=== PATIENT | female | born 1955 | race Caucasian/White ===

== ENCOUNTER → 2017-03-06 | Outpatient (CLI) | payer OTHER ==
[~2017-03-06] MED LIST: AMOXICILLIN500 MG PO; ANTIVERT25 MG PO; ASPIRIN81 M1 PO; ATIVAN0.5 MG PO; EC NAPROSYN500 MG PO; HYDROCODONE BIT1 T11 PO; LANTUS100 U/ML SC; LEXAPRO20 MG PO; LIPITOR40 MG PO; LISINOPRIL2.5 MG PO; METFORMIN500 MG PO; MULTI-DAY1 TAB PO; NOVOLIN R100 U/ML SC; OMEPRAZOLE20 MG PO; VICODIN 500 MG-1 TAB PO; VICTOZA6 MG/ML SC; VITAMIN C1000 M2 PO; VITAMIN D1000 IU PO; ZOCOR20 MG PO; [UNRECOGNIZED DRUG - OTHER] PO
== END ==
LOC: CT 12:20
DX: N20.0 Calculus of kidney (principal); I25.10 Atherosclerotic heart disease of native coronary artery without angina pectoris; K76.0 Fatty (change of) liver, not elsewhere classified; K43.9 Ventral hernia without obstruction or gangrene; Z90.710 Acquired absence of both cervix and uterus; Z85.42 Personal history of malignant neoplasm of other parts of uterus

== ENCOUNTER → 2017-05-08 | Outpatient (CLI) | payer OTHER ==
[2017-05-08 16:14] LABS: BASO % 0.4 % (0.0-1.0); EOS # 0.2 10*3/uL (0.0-0.4); EOS % 2.3 % (1.0-4.0); HEMATOCRIT 36.9 % (37.0-47.0); HEMOGLOBIN 11.9 g/dl (12.0-16.0); LYMPH # 2.7 10*3/uL (1.3-4.4); LYMPH % 32.2 % (27.0-41.0); MEAN CELL VOLUME 88.1 fl (81.0-99.0); MEAN CORPUSCULAR HGB 28.4 pg (27.0-31.0); MEAN CORPUSCULAR HGB CONC 32.2 g/dl (33.0-37.0); MEAN PLATELET VOLUME 11.1 fl (9.6-12.3); MONO # 0.5 10*3/uL (0.1-1.0); MONO % 6.1 % (3.0-9.0); NEUT # 4.8 10*3/uL (2.3-7.9); NEUT % 58.8 % (47.0-73.0); PLATELET COUNT AUTOMATED 237 10*3/uL (130-400); RED BLOOD COUNT 4.19 10*6/uL (4.10-5.10); RED CELL DISTRI WIDTH 13.7 % (0-14.5); WHITE BLOOD COUNT 8.2 10*3/uL (4.8-10.8)
== END | disposition home or self-care (01) ==
LOC: LAB 14:44
PROVIDERS: Urology
DX: Z79.01 Long term (current) use of anticoagulants (principal)

== ENCOUNTER → 2017-05-09 | Outpatient (CLI) | payer OTHER ==
[2017-05-09 12:16] LABS: BASO % 0.5 % (0.0-1.0); EOS # 0.2 10*3/uL (0.0-0.4); EOS % 2.7 % (1.0-4.0); HEMOGLOBIN 11.6 g/dl (12.0-16.0); LYMPH # 2.4 10*3/uL (1.3-4.4); LYMPH % 36.1 % (27.0-41.0); MEAN CELL VOLUME 88.2 fl (81.0-99.0); MEAN CORPUSCULAR HGB 28.4 pg (27.0-31.0); MEAN CORPUSCULAR HGB CONC 32.2 g/dl (33.0-37.0); MEAN PLATELET VOLUME 10.5 fl (9.6-12.3); MONO # 0.5 10*3/uL (0.1-1.0); MONO % 7.1 % (3.0-9.0); NEUT # 3.5 10*3/uL (2.3-7.9); NEUT % 53.4 % (47.0-73.0); PLATELET COUNT AUTOMATED 228 10*3/uL (130-400); RED BLOOD COUNT 4.08 10*6/uL (4.10-5.10); RED CELL DISTRI WIDTH 13.5 % (0-14.5); WHITE BLOOD COUNT 6.6 10*3/uL (4.8-10.8)
== END | disposition home or self-care (01) ==
LOC: LAB 11:33
PROVIDERS: Urology
DX: Z79.01 Long term (current) use of anticoagulants (principal)

== ENCOUNTER → 2017-06-18 | Outpatient (CLI) | payer OTHER ==
[2017-06-18 13:27] LABS: BASO % 0.4 % (0.0-1.0); EOS # 0.1 10*3/uL (0.0-0.4); EOS % 1.4 % (1.0-4.0); HEMATOCRIT 33.7 % (37.0-47.0); HEMOGLOBIN 10.4 g/dl (12.0-16.0); LYMPH # 2.5 10*3/uL (1.3-4.4); LYMPH % 29.6 % (27.0-41.0); MEAN CORPUSCULAR HGB 25.3 pg (27.0-31.0); MEAN CORPUSCULAR HGB CONC 30.9 g/dl (33.0-37.0); MEAN PLATELET VOLUME 10.6 fl (9.6-12.3); MONO # 0.6 10*3/uL (0.1-1.0); MONO % 7.3 % (3.0-9.0); NEUT # 5.2 10*3/uL (2.3-7.9); NEUT % 60.8 % (47.0-73.0); PLATELET COUNT AUTOMATED 276 10*3/uL (130-400); RED BLOOD COUNT 4.11 10*6/uL (4.10-5.10); WHITE BLOOD COUNT 8.5 10*3/uL (4.8-10.8)
[2017-06-18 13:47] LABS: ALBUMIN 3.3 gm/dl (3.1-4.5); ALKALINE PHOSPHATASE 62 U/L (45-117); BILIRUBIN, TOTAL 0.2 mg/dl (0.2-1.0); BUN 15 mg/dl (7-24); CARBON DIOXIDE 27 mmol/L (21-32); CHLORIDE 103 mmol/L (98-107); EST GLOM FILT AFRICAN AMERICAN > 60 ml/min; GLUCOSE 178 mg/dL (65-99); POTASSIUM 4.3 mmol/L (3.5-5.1); PROTHROMBIN TIME 10.7 SECONDS (9.0-12.4); SGOT/AST 24 IU/L (3-35); SGPT/ALT 28 U/L (12-78); SODIUM 138 mmol/L (136-145); TOTAL PROTEIN 7.2 gm/dL (6.4-8.2)
== END | disposition home or self-care (01) ==
LOC: LAB 12:45
PROVIDERS: Urology
DX: Z01.818 Encounter for other preprocedural examination (principal); N20.0 Calculus of kidney

== ENCOUNTER → 2018-04-18 | Outpatient (CLI) | payer MEDICARE ==
[2018-04-18 09:28] LABS: BASO % 0.8 % (0.0-1.0); EOS # 0.1 10*3/uL (0.0-0.4); EOS % 2.6 % (1.0-4.0); HEMATOCRIT 39.6 % (37.0-47.0); HEMOGLOBIN 11.7 g/dl (12.0-16.0); LYMPH # 2.4 10*3/uL (1.3-4.4); LYMPH % 45.8 % (27.0-41.0); MEAN CELL VOLUME 79.2 fl (81.0-99.0); MEAN CORPUSCULAR HGB 23.4 pg (27.0-31.0); MEAN CORPUSCULAR HGB CONC 29.5 g/dl (33.0-37.0); MEAN PLATELET VOLUME 10.9 fl (9.6-12.3); MONO # 0.5 10*3/uL (0.1-1.0); MONO % 8.8 % (3.0-9.0); NEUT # 2.2 10*3/uL (2.3-7.9); NEUT % 41.8 % (47.0-73.0); PLATELET COUNT AUTOMATED 228 10*3/uL (130-400); RED CELL DISTRI WIDTH 17.2 % (0-14.5); WHITE BLOOD COUNT 5.3 10*3/uL (4.8-10.8)
[2018-04-18 09:55] LABS: ALBUMIN 3.2 gm/dl (3.1-4.5); ALKALINE PHOSPHATASE 65 U/L (45-117); BUN 21 mg/dl (7-24); CHLORIDE 104 mmol/L (98-107); CHOLESTEROL 200 mg/dL (<200); CREATININE 0.92 mg/dL (0.55-1.02); HDL CHOLESTEROL 32 mg/dl (40-60); LDL CHOLESTEROL 128 mg/dL (9-159); POTASSIUM 3.7 mmol/L (3.5-5.1); SGOT/AST 24 IU/L (3-35); SGPT/ALT 37 U/L (12-78); SODIUM 141 mmol/L (136-145); TOTAL PROTEIN 6.8 gm/dL (6.4-8.2); TRIGLYCERIDES 201 mg/dl (<150); VLDL CHOLESTEROL 40 mg/dL (6-40)
== END | disposition home or self-care (01) ==
LOC: LAB 08:35
PROVIDERS: Family Medicine
DX: E78.5 Hyperlipidemia, unspecified (principal); E11.65 Type 2 diabetes mellitus with hyperglycemia

== ENCOUNTER 2019-04-19 14:04 | Inpatient (IN) | payer MEDICARE ==
[~2019-04-19] VITALS: Ht 160 cm; Wt 131.3 kg
[2019-04-19] VITALS (9 sets, daily range): BP systolic 100–167; BP diastolic 54–103
--- NOTE | ~2019-04-19 | EKG ---
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
--- NOTE | ~2019-04-19 | EKG ---
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
--- NOTE | ~2019-04-19 | EKG ---
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
--- NOTE | ~2019-04-19 | EKG ---
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
[~2019-04-19 14:04] MED LIST changes: +ESCITALOPRAM OX10 MG PO; +IRBESARTAN75 M1 PO; +PRAVASTATIN SOD40 MG PO; +TROSPIUM CHLORI60 M1 PO; +XARELTO20 M1 PO
[2019-04-19 14:38] LABS: BASO % 0.3 % (0.0-1.0); EOS # 0.1 10*3/uL (0.0-0.4); EOS % 0.9 % (1.0-4.0); HEMATOCRIT 38.9 % (37.0-47.0); HEMOGLOBIN 11.8 g/dl (12.0-16.0); LYMPH # 2.6 10*3/uL (1.3-4.4); LYMPH % 33.2 % (27.0-41.0); MEAN CELL VOLUME 83.3 fl (81.0-99.0); MEAN CORPUSCULAR HGB 25.3 pg (27.0-31.0); MEAN CORPUSCULAR HGB CONC 30.3 g/dl (33.0-37.0); MEAN PLATELET VOLUME 10.4 fl (9.6-12.3); MONO # 0.5 10*3/uL (0.1-1.0); MONO % 6.7 % (3.0-9.0); NEUT # 4.6 10*3/uL (2.3-7.9); NEUT % 58.5 % (47.0-73.0); PLATELET COUNT AUTOMATED 239 10*3/uL (130-400); RED BLOOD COUNT 4.67 10*6/uL (4.10-5.10); RED CELL DISTRI WIDTH 16.6 % (0-14.5); WHITE BLOOD COUNT 7.8 10*3/uL (4.8-10.8)
[2019-04-19 14:48] LABS: ACT PARTIAL THROMBO TIME 24.5 SECONDS (20.0-32.1)
--- NOTE | 2019-04-19 14:49 | NUR ---
SLEEPING SUNDLY AT THIS TIME. POX 89%, PLACED ON NC 2LPM. FAMILY AT BEDSIDE.
[2019-04-19 14:58] LABS: ALBUMIN 3.4 gm/dl (3.1-4.5); ALKALINE PHOSPHATASE 57 U/L (45-117); BUN 15 mg/dl (7-24); CHLORIDE 105 mmol/L (98-107); CREATININE 0.96 mg/dL (0.55-1.02); POTASSIUM 3.7 mmol/L (3.5-5.1); SGOT/AST 30 IU/L (3-35); SGPT/ALT 35 U/L (12-78); SODIUM 140 mmol/L (136-145); TOTAL PROTEIN 7.3 gm/dL (6.4-8.2)
[2019-04-19 15:07] LABS: TROPONIN I < 0.015 ng/ml (<0.045)
--- NOTE | 2019-04-19 15:35 | NUR ---
SLEEPING, EASILY AROUSED. FEELING BETER PER PT.
--- NOTE | 2019-04-19 16:08 | NUR ---
SLEEPING DEEPLY, AROUSES EASILY BUT DRIFTS BACK TO SLEEP QUICKLY. WILL CONTINUE TO MONITOR.
--- NOTE | 2019-04-19 17:42 | NUR ---
PT ATTEMPTED TO SIT UPRIGHT IN BED, TOLERATED FOR A BRIEF TIME. COMPLAINS OF ROOM SPINNING AND DRY HEAVING.
--- NOTE | 2019-04-19 18:50 | NUR ---
PT DRY HEAVING WITH EVERY ATTEMPT TO MOVE OR SIT UP.
--- NOTE | 2019-04-19 19:00 | NUR ---
PT RESTING QUIETLY IN BED DURING BEDSIDE SHIFT REPORT. NO S/S OF DISTRESS NOTED.
--- NOTE | 2019-04-19 19:04 | NUR ---
[facility] 63, admitted to , under the services of BETH Fernando DO with a diagnosis of VERTIGO. Chief complaint is N/V, DIZZINESS. Patient arrived via bed from ER. Monitor applied. Initial assessment completed. Vital signs taken and recorded. BETH FERNANDO DO notified of admission to the unit. Orders received. See assessment for past medical history, medications and allergies. Patient and/or family oriented to unit. [facility] visitation policy reviewed. Clothing/patient valuable form completed. MERRITT ORNELAS
--- NOTE | 2019-04-19 21:55 | NUR ---
PT NOTED W/N/V. MEDICATED W/ZOFRAN IVP. PT ENCOURAGED TO LIE STILL. PT AGREEABLE. LIGHTS TURNED OFF AND BLIND CLOSED. WILL CONTINUE TO MONITOR.
--- NOTE | 2019-04-20 03:05 | NUR ---
DR. VALENTIN NOTIFIED OF PT'S REQUEST FOR SLEEP AID.
--- NOTE | 2019-04-20 03:12 | NUR ---
24 HR chart check completed.
--- NOTE | 2019-04-20 03:21 | NUR ---
PT MEDICATED W/RESTORIL TO HELP PROMOTE SLEEP. PT DOES NOT WISH DOOR TO BE CLOSED.
[2019-04-20 08:00] VITALS: BP 118/58
--- NOTE | 2019-04-20 09:00 | NUR ---
Financial Aid in to talk to patient. Patient states lives at home with her son living on the same piece of property. Her is currently in [place] as they have a home there also. They are snow birds but she came home early to be able to see her son and grandchildren. There are 0 steps in the home. Physician: Dr. Yenny Garcia Pharmacy: [facility] health services: none Patient's level of ADLs: INDEPENDENT Patient has working utilities: yes DME: none Follow-up physician's appointment after d/c: will be made by the hospitalist nurse director upon discharge Does patient want to access PORTAL?: no Discharge plan discussed with patient. She lives at home with her son living on the same piece of property. Her is currently in [place] but on his way home. She is independent in her ADLs and ambulation. Discussed home health care services and she denies any home needs at this time. When medically stable she will be discharged to home. MARY VITALE
[2019-04-20 09:14] LABS: BASO % 0.4 % (0.0-1.0); EOS # 0.1 10*3/uL (0.0-0.4); EOS % 0.6 % (1.0-4.0); HEMATOCRIT 35.5 % (37.0-47.0); HEMOGLOBIN 10.7 g/dl (12.0-16.0); LYMPH # 2.7 10*3/uL (1.3-4.4); LYMPH % 32.1 % (27.0-41.0); MEAN CELL VOLUME 84.5 fl (81.0-99.0); MEAN CORPUSCULAR HGB 25.5 pg (27.0-31.0); MEAN CORPUSCULAR HGB CONC 30.1 g/dl (33.0-37.0); MEAN PLATELET VOLUME 10.7 fl (9.6-12.3); MONO # 0.7 10*3/uL (0.1-1.0); MONO % 8.1 % (3.0-9.0); NEUT # 4.9 10*3/uL (2.3-7.9); NEUT % 58.4 % (47.0-73.0); PLATELET COUNT AUTOMATED 215 10*3/uL (130-400); RED CELL DISTRI WIDTH 16.6 % (0-14.5); WHITE BLOOD COUNT 8.4 10*3/uL (4.8-10.8)
[2019-04-20 09:16] LABS: ALBUMIN 2.8 gm/dl (3.1-4.5); ALKALINE PHOSPHATASE 51 U/L (45-117); BUN 13 mg/dl (7-24); CHLORIDE 109 mmol/L (98-107); CHOLESTEROL 174 mg/dL (<200); CREATININE 0.77 mg/dL (0.55-1.02); HDL CHOLESTEROL 40 mg/dl (40-60); LDL CHOLESTEROL 101 mg/dL (9-159); PHOSPHOROUS 3.6 mg/dL (2.5-4.9); POTASSIUM 3.7 mmol/L (3.5-5.1); SGOT/AST 32 IU/L (3-35); SGPT/ALT 33 U/L (12-78); SODIUM 140 mmol/L (136-145); TOTAL PROTEIN 6.4 gm/dL (6.4-8.2); TRIGLYCERIDES 166 mg/dl (<150); VLDL CHOLESTEROL 33 mg/dL (6-40)
--- NOTE | 2019-04-20 09:58 | NUR ---
DR. MACDONALD NOTIFIED OF HOME MEDS HAVE NOT BEEN CONTINUED OF YET. DR. MIRELES TAKE CARE OF IT.
[2019-04-20 10:54] LABS: VITAMIN D, 25-HYDROXY 30.8 ng/mL (30-100)
--- NOTE | 2019-04-20 11:39 | NUR ---
PATIENT STATES THAT SHE IS NOT FEELING NAUSEATED AT THIS TIME, JUST DIZZY. DOES NOT FEEL SHE NEEDS TO ZOFRAN RIGHT NOW.
[2019-04-20 12:00] VITALS: BP 123/77
[2019-04-20 16:00] VITALS: BP 138/57
--- NOTE | 2019-04-20 19:15 | NUR ---
PT IS AWAKE AND SITTING UP IN BED EATING HER SNACK. NO S/S OF DISTRESS NOTED. SHE STATES THAT SHE IS FEELING MUCH BETTER AND HAVING NO NAUSEA OR LIGHT SENSITIVITY AT THIS TIME. BED IS LOW, CALL LIGHT WITHIN REACH. WILL CONTINUE TO MONITOR.
[2019-04-20 20:00] VITALS: BP 124/57
--- NOTE | 2019-04-20 21:54 | NUR ---
24 HR CHART CHECK COMPLETE
--- NOTE | 2019-04-20 23:00 | NUR ---
PT MEDICATED WITH RESTORIL FOR C/O INSOMNIA. WILL CONTINUE TO MONITOR.
[2019-04-21] VITALS: BP 140/62
--- NOTE | 2019-04-21 | NUR ---
PT IS ASLEEP IN BED AT THIS TIME. PRN RESTORIL EFFECTIVE.
[2019-04-21 08:00] VITALS: BP 122/66
--- NOTE | 2019-04-21 09:00 | NUR ---
Product Examiner in to see patient. No new needs or request at this time. She denies any home needs. When medically stable she will be discharged to home.
[2019-04-21 12:00] VITALS: BP 147/73
[2019-04-21] MEDS ORDERED: MECLIZINE HCL25 M2 PO (12:32)
--- NOTE | 2019-04-21 15:04 | NUR ---
Discharge instructions reviewed with patient/family. Patient receptive and verbalizes understanding. Follow-up care arranged. Written instructions given to patient/family. [place] DISCONTINUED. BUSINESS SERVICES VICE PRESIDENT DISCONTINUED. PATIENT TAKEN OFF FLOOR BY WHEELCHAIR VIA FAMILY. TEAGAN HAYS
== END 2019-04-21 15:04 | disposition home or self-care (01) | DRG 88 ==
LOC: ED 14:04 → 4E 18:03 → EDHOLD 18:03 → 4E 18:18
PROVIDERS: Emergency Medicine; Internal Medicine; ADMIT Internal Medicine
DX: S06.0X0A Concussion without loss of consciousness, initial encounter (principal); E43 Unspecified severe protein-calorie malnutrition; Z68.43 Body mass index [BMI] 50.0-59.9, adult; D68.2 Hereditary deficiency of other clotting factors; R42 Dizziness and giddiness; S00.93XA Contusion of unspecified part of head, initial encounter; S46.912A Strain of unspecified muscle, fascia and tendon at shoulder and upper arm level, left arm, initial encounter; E11.65 Type 2 diabetes mellitus with hyperglycemia; I10 Essential (primary) hypertension; F41.9 Anxiety disorder, unspecified; F32.9 Major depressive disorder, single episode, unspecified; M51.26 Other intervertebral disc displacement, lumbar region; K21.9 Gastro-esophageal reflux disease without esophagitis; E66.01 Morbid (severe) obesity due to excess calories; W01.0XXA Fall on same level from slipping, tripping and stumbling without subsequent striking against object, initial encounter; Y93.89 Activity, other specified; Y92.098 Other place in other non-institutional residence as the place of occurrence of the external cause; Y99.8 Other external cause status; Z91.041 Radiographic dye allergy status; Z88.8 Allergy status to other drugs, medicaments and biological substances; Z88.6 Allergy status to analgesic agent; Z90.49 Acquired absence of other specified parts of digestive tract; Z79.4 Long term (current) use of insulin; Z90.710 Acquired absence of both cervix and uterus; Z98.891 History of uterine scar from previous surgery; Z82.3 Family history of stroke; Z86.73 Personal history of transient ischemic attack (TIA), and cerebral infarction without residual deficits; Z85.42 Personal history of malignant neoplasm of other parts of uterus; Z80.1 Family history of malignant neoplasm of trachea, bronchus and lung; Z79.899 Other long term (current) drug therapy

== ENCOUNTER → 2019-06-24 | Outpatient (CLI) | payer OTHER ==
[~2019-06-24] MED LIST changes: +MECLIZINE HCL25 M2 PO
== END | disposition home or self-care (01) ==
LOC: MRI 13:50
DX: M48.061 Spinal stenosis, lumbar region without neurogenic claudication (principal); M51.27 Other intervertebral disc displacement, lumbosacral region; M47.816 Spondylosis without myelopathy or radiculopathy, lumbar region; R20.0 Anesthesia of skin

== ENCOUNTER 2020-04-21 23:11 | Emergency (ER) | payer OTHER ==
[2020-04-22 01:45] LABS: BASO % 0.5 % (0.0-1.0); EOS # 0.1 10*3/uL (0.0-0.4); EOS % 1.4 % (1.0-4.0); HEMATOCRIT 38.4 % (37.0-47.0); LYMPH # 2.5 10*3/uL (1.3-4.4); LYMPH % 43.4 % (27.0-41.0); MEAN CELL VOLUME 78.4 fl (81.0-99.0); MEAN CORPUSCULAR HGB 22.9 pg (27.0-31.0); MEAN CORPUSCULAR HGB CONC 29.2 g/dl (33.0-37.0); MEAN PLATELET VOLUME 11.4 fl (9.6-12.3); MONO # 0.5 10*3/uL (0.1-1.0); MONO % 8.9 % (3.0-9.0); NEUT # 2.6 10*3/uL (2.3-7.9); NEUT % 45.6 % (47.0-73.0); PLATELET COUNT AUTOMATED 201 10*3/uL (130-400); RED CELL DISTRI WIDTH 17.2 % (0-14.5); WHITE BLOOD COUNT 5.6 10*3/uL (4.8-10.8)
[2020-04-22 01:57] LABS: ACT PARTIAL THROMBO TIME 24.8 SECONDS (20.0-32.1)
[2020-04-22 02:01] LABS: ALBUMIN 3.2 gm/dl (3.1-4.5); ALKALINE PHOSPHATASE 67 U/L (45-117); BUN 19 mg/dl (7-24); CHLORIDE 105 mmol/L (98-107); CREATININE 0.99 mg/dL (0.55-1.02); LIPASE 81 U/L (73-393); POTASSIUM 4.3 mmol/L (3.5-5.1); SGOT/AST 57 IU/L (3-35); SGPT/ALT 46 U/L (12-78); SODIUM 137 mmol/L (136-145); TOTAL PROTEIN 7.5 gm/dL (6.4-8.2)
[2020-04-22 02:07] LABS: TROPONIN I < 0.015 ng/ml (<0.045)
== END 2020-04-22 02:44 | disposition left against medical advice (07) ==
LOC: ED 23:11
PROVIDERS: Emergency Medicine Emergency Medical Services
DX: I63.81 Other cerebral infarction due to occlusion or stenosis of small artery (principal); D68.51 Activated protein C resistance; K21.9 Gastro-esophageal reflux disease without esophagitis; E11.9 Type 2 diabetes mellitus without complications; F32.9 Major depressive disorder, single episode, unspecified; Z91.041 Radiographic dye allergy status; Z79.899 Other long term (current) drug therapy; Z79.4 Long term (current) use of insulin

== ENCOUNTER 2021-06-24 20:00 | Emergency (ER) | payer OTHER ==
[~2021-06-24] VITALS: Wt 104.3 kg
[2021-06-24] MEDS ORDERED: PREDNISONE20 M1 PO (22:25)
== END 2021-06-24 22:45 | disposition home or self-care (01) ==
LOC: ED 20:00
DX: B88.8 Other specified infestations (principal); Z91.041 Radiographic dye allergy status; Z88.6 Allergy status to analgesic agent; Z79.899 Other long term (current) drug therapy; Z79.4 Long term (current) use of insulin; Z90.49 Acquired absence of other specified parts of digestive tract; Z90.711 Acquired absence of uterus with remaining cervical stump; Z98.890 Other specified postprocedural states

== ENCOUNTER 2021-07-12 18:46 | Emergency (ER) | payer OTHER ==
[~2021-07-12] VITALS: Ht 160 cm; Wt 104.3 kg
[~2021-07-12 18:46] MED LIST changes: +PREDNISONE20 M1 PO
[2021-07-12] MEDS ORDERED: PREDNISONE20 M1 PO (23:49)
[2021-07-12] MEDS ORDERED: METHOCARBAMOL500 M1 PO (23:49)
== END 2021-07-12 23:58 | disposition home or self-care (01) ==
LOC: ED 18:46
DX: M54.5 Low back pain (principal); M25.551 Pain in right hip; Z91.041 Radiographic dye allergy status; Z88.8 Allergy status to other drugs, medicaments and biological substances; Z79.899 Other long term (current) drug therapy; Z79.4 Long term (current) use of insulin

== ENCOUNTER → 2021-08-13 | Outpatient (CLI) | payer OTHER ==
[~2021-08-13] MED LIST changes: +METHOCARBAMOL500 M1 PO
[2021-08-13 15:32] LABS: HEMATOCRIT 28.7 % (37.0-47.0); MEAN CELL VOLUME 73.8 fl (81.0-99.0); MEAN CORPUSCULAR HGB 20.1 pg (27.0-31.0); MEAN CORPUSCULAR HGB CONC 27.2 g/dl (33.0-37.0); MEAN PLATELET VOLUME 11.1 fl (9.6-12.3); PLATELET COUNT AUTOMATED 184 10*3/uL (130-400); RED BLOOD COUNT 3.89 10*6/uL (4.10-5.10); RED CELL DISTRI WIDTH 19.1 % (0-14.5); WHITE BLOOD COUNT 4.3 10*3/uL (4.8-10.8)
[2021-08-13 16:04] LABS: ATYPICAL LYMPHS 2 % (0-0); OVALOCYTES FEW; PLATELET SUFFICIENCY NORMAL (NORMAL); TOTAL CELLS COUNTED 100 #CELLS
[2021-08-14 07:06] LABS: RHEUMATOID ARTHRITIS FACTOR <10.0 IU/mL (0.0-13.9)
[2021-08-14 09:07] LABS: HEP B CORE AB, IGM Negative (Negative); HEPATITIS B SURFACE AG Negative (Negative); HEPATITIS C VIRUS ANTIBODY <0.1 s/co (0.0-0.9)
[2021-08-14 14:08] LABS: ANTI-RNP ANTIBODIES <0.2 AI (0.0-0.9)
[2021-08-15 00:06] LABS: CCP ANTIBODIES IGG/IGA 3 units (0-19)
[2021-08-15 07:06] LABS: DVVTMIXRFX CHG
[2021-08-16 07:06] LABS: LUPUS REFLEX INTERPRETATION Comment: (.)
[2021-08-20 18:06] LABS: HLA-B27 ANTIGEN Negative (.)
== END | disposition home or self-care (01) ==
LOC: LAB 14:57
PROVIDERS: ATTEND Orthopaedic Surgery
DX: M79.642 Pain in left hand (principal); R53.83 Other fatigue

== ENCOUNTER → 2021-08-30 | Outpatient (CLI) | payer OTHER ==
[2021-08-30 08:17] LABS: HEMATOCRIT 30.8 % (37.0-47.0); MEAN CELL VOLUME 73.3 fl (81.0-99.0); MEAN CORPUSCULAR HGB 19.8 pg (27.0-31.0); MEAN CORPUSCULAR HGB CONC 26.9 g/dl (33.0-37.0); MEAN PLATELET VOLUME 10.3 fl (9.6-12.3); PLATELET COUNT AUTOMATED 194 10*3/uL (130-400); RED CELL DISTRI WIDTH 19.2 % (0-14.5); WHITE BLOOD COUNT 8.6 10*3/uL (4.8-10.8)
[2021-08-30 08:29] LABS: INTERNATIONAL NORM RATIO 1.1 (2.0-3.5)
[2021-08-30 08:30] LABS: ALBUMIN 2.6 gm/dl (3.1-4.5); ALKALINE PHOSPHATASE 67 U/L (45-117); BUN 15 mg/dl (7-24); CHLORIDE 103 mmol/L (98-107); CREATININE 0.85 mg/dL (0.55-1.02); POTASSIUM 4.3 mmol/L (3.5-5.1); SGOT/AST 54 IU/L (3-35); SGPT/ALT 37 U/L (12-78); SODIUM 137 mmol/L (136-145); TOTAL PROTEIN 8.1 gm/dL (6.4-8.2)
[2021-08-30 08:34] LABS: PLATELET SUFFICIENCY NORMAL (NORMAL); TOTAL CELLS COUNTED 100 #CELLS
[2021-08-30 08:35] LABS: MICROCYTOSIS MODERATE; OVALOCYTES FEW; ROULEAUX SLIGHT; TARGET CELLS FEW
[2021-08-30 09:57] LABS: ACT PARTIAL THROMBO TIME 27.6 SECONDS (20.0-32.1)
== END | disposition home or self-care (01) ==
LOC: LAB 07:41
PROVIDERS: Family Medicine; ATTEND Family Medicine
DX: E11.43 Type 2 diabetes mellitus with diabetic autonomic (poly)neuropathy (principal); D61.818 Other pancytopenia; D68.51 Activated protein C resistance

== ENCOUNTER 2022-10-02 12:06 | Emergency (ER) | payer OTHER ==
[~2022-10-02] VITALS: Ht 162.5 cm; Wt 91.2 kg
[~2022-10-02 12:06] MED LIST changes: +CYMBALTA30 MG PO; +GABAPENTIN400 MG PO; +HUMALOG100 UNIT/1 SC
== END 2022-10-02 13:55 | disposition home or self-care (01) ==
LOC: ED 12:06
DX: S09.90XA Unspecified injury of head, initial encounter (principal); Z98.890 Other specified postprocedural states; Z90.710 Acquired absence of both cervix and uterus; Z90.49 Acquired absence of other specified parts of digestive tract; Z79.899 Other long term (current) drug therapy; Z91.041 Radiographic dye allergy status; Z88.8 Allergy status to other drugs, medicaments and biological substances; W18.39XA Other fall on same level, initial encounter; Y93.89 Activity, other specified; Y92.89 Other specified places as the place of occurrence of the external cause; Y99.8 Other external cause status

== ENCOUNTER → 2022-10-18 | Outpatient (CLI) | payer OTHER | END | disposition home or self-care (01) | LOC: CT 10-11 15:00 | PROVIDERS: ATTEND Family Medicine | DX: K80.20 Calculus of gallbladder without cholecystitis without obstruction (principal); N20.0 Calculus of kidney; I25.10 Atherosclerotic heart disease of native coronary artery without angina pectoris; I70.0 Atherosclerosis of aorta; R10.84 Generalized abdominal pain ==

== ENCOUNTER → 2022-11-28 | Day surgery (SDC) | payer OTHER ==
[2022-11-25 16:15] LABS: BASO % 0.2 % (0.0-1.0); EOS % 0.5 % (1.0-4.0); HEMATOCRIT 29.6 % (37.0-47.0); LYMPH # 1.6 10*3/uL (1.3-4.4); MEAN CELL VOLUME 100.7 fl (81.0-99.0); MEAN CORPUSCULAR HGB 30.6 pg (27.0-31.0); MEAN CORPUSCULAR HGB CONC 30.4 g/dl (33.0-37.0); MONO # 0.3 10*3/uL (0.1-1.0); MONO % 7.3 % (3.0-9.0); NEUT # 2.2 10*3/uL (2.3-7.9); NEUT % 52.5 % (47.0-73.0); PLATELET COUNT AUTOMATED 163 10*3/uL (130-400); RED BLOOD COUNT 2.94 10*6/uL (4.10-5.10); RED CELL DISTRI WIDTH 18.9 % (0-14.5); WHITE BLOOD COUNT 4.1 10*3/uL (4.8-10.8)
[2022-11-25 16:29] LABS: BUN 11 mg/dl (9-23); CHLORIDE 94 mmol/L (98-107); POTASSIUM 4.1 mmol/L (3.4-5.1)
[~2022-11-28] VITALS: Ht 160 cm; Wt 104.3 kg
[~2022-11-28] MED LIST changes: +METFORMIN XR500 MG PO
== END | disposition home or self-care (01) ==
LOC: SDC 11-25 14:00
PROVIDERS: ATTEND Surgery
DX: K80.20 Calculus of gallbladder without cholecystitis without obstruction (principal); E11.9 Type 2 diabetes mellitus without complications; F41.9 Anxiety disorder, unspecified; K21.9 Gastro-esophageal reflux disease without esophagitis; E78.00 Pure hypercholesterolemia, unspecified; F32.A Depression, unspecified; Z86.73 Personal history of transient ischemic attack (TIA), and cerebral infarction without residual deficits; Z53.8 Procedure and treatment not carried out for other reasons

== ENCOUNTER → 2022-12-09 | Outpatient (CLI) | payer OTHER | END | disposition home or self-care (01) | LOC: CT 11-29 15:00 | PROVIDERS: ATTEND Family Medicine | DX: S22.31XA Fracture of one rib, right side, initial encounter for closed fracture (principal); K80.20 Calculus of gallbladder without cholecystitis without obstruction; I51.7 Cardiomegaly; I34.89 Other nonrheumatic mitral valve disorders; R91.8 Other nonspecific abnormal finding of lung field; K22.9 Disease of esophagus, unspecified; X58.XXXA Exposure to other specified factors, initial encounter; Y93.89 Activity, other specified; Y92.89 Other specified places as the place of occurrence of the external cause; Y99.8 Other external cause status ==

== ENCOUNTER → 2023-01-16 | Day surgery (SDC) | payer OTHER ==
[2023-01-14 13:29] VITALS: BP 123/57
[2023-01-16] VITALS (8 sets, daily range): BP systolic 113–129; BP diastolic 55–69
[~2023-01-16] VITALS: Ht 160 cm; Wt 89.4 kg
[~2023-01-16] MED LIST changes: +COLACE100 MG PO; +DITROPAN XL10 MG PO; +HYDROCODONE-AC1 EAC2 PO; +LOPERAMIDE HCL2 MG PO; +MELATONIN10 M4 PO; +METFORMIN HCL500 M3 PO; +OMEPRAZOLE40 MG PO; +ONDANSETRON HYDR4 M1 PO; +PERCOCET 5-3251 EACH PO; +TYLENOL W/ CODEINE PO
== END | disposition home or self-care (01) ==
LOC: SDC 11-25 14:00 → EDSTATUS 01-14 13:15 → SDC 00:34
PROVIDERS: ATTEND Surgery
DX: K80.10 Calculus of gallbladder with chronic cholecystitis without obstruction (principal); E11.9 Type 2 diabetes mellitus without complications; K21.9 Gastro-esophageal reflux disease without esophagitis; E78.00 Pure hypercholesterolemia, unspecified; F41.9 Anxiety disorder, unspecified; F32.A Depression, unspecified; I10 Essential (primary) hypertension; E66.9 Obesity, unspecified; Z68.34 Body mass index [BMI] 34.0-34.9, adult; Z86.73 Personal history of transient ischemic attack (TIA), and cerebral infarction without residual deficits; Z79.899 Other long term (current) drug therapy

== ENCOUNTER 2023-01-21 03:28 | Inpatient (IN) | payer OTHER ==
[~2023-01-21] VITALS: Ht 160 cm; Wt 78.1 kg
[2023-01-21] VITALS (57 sets, daily range): BP systolic 81–125; BP diastolic 35–88
[~2023-01-21 03:28] MED LIST changes: -DITROPAN XL10 MG PO; -HYDROCODONE-AC1 EAC2 PO; -LOPERAMIDE HCL2 MG PO; -MELATONIN10 M4 PO; -METFORMIN HCL500 M3 PO; -OMEPRAZOLE40 MG PO; -TYLENOL W/ CODEINE PO
[2023-01-21 04:01] LABS: ABG BASE EXCESS -2.5 mmol/L (-2.0-2.0); ARTERIAL BLOOD GAS PH 7.489 (7.35-7.45)
[2023-01-21 04:12] LABS: BILIRUBIN 2+ (Negative); BLOOD Negative (Negative); CLARITY Clear (Clear); COLOR Dark Yellow (Yellow); GLUCOSE Trace (Negative); KETONE 1+ (Negative); LEUKO ESTERASE Trace (Negative); NITRITE Negative (Negative); PH 5.5 (4.5-8.0); SPECIFIC GRAVITY >= 1.030 (1.001-1.030)
[2023-01-21 04:13] LABS: HEMATOCRIT 24.8 % (37.0-47.0); MEAN CELL VOLUME 108.3 fl (81.0-99.0); MEAN CORPUSCULAR HGB 31.4 pg (27.0-31.0); MEAN PLATELET VOLUME 12.1 fl (9.6-12.3); NUCLEATED RED BLOOD CELL 0.1 10*3/uL (0.0-0.0); NUCLEATED RED BLOOD CELL 0.7 % (0.0-0.0); PLATELET COUNT AUTOMATED 187 10*3/uL (130-400); RED BLOOD COUNT 2.29 10*6/uL (4.10-5.10); RED CELL DISTRI WIDTH 18.7 % (0-14.5)
[2023-01-21 04:17] LABS: MANUAL DIFF REFLEX YES
[2023-01-21 04:28] LABS: BACTERIA 1+; MUCOUS 1+; RBC 0-2 rbc/hpf (0-2)
[2023-01-21 04:33] LABS: ALKALINE PHOSPHATASE 82 U/L (46-116); BUN 19 mg/dl (9-23); CHLORIDE 97 mmol/L (98-107); POTASSIUM 3.7 mmol/L (3.4-5.1); SGPT/ALT 17 U/L (10-49); TOTAL PROTEIN 9.1 gm/dL (6.0-8.0)
[2023-01-21 04:34] LABS: OVALOCYTES FEW; PLATELET SUFFICIENCY NORMAL (NORMAL); POLYCHROMASIA SLIGHT; SPHEROCYTES FEW; TOTAL CELLS COUNTED 100 #CELLS
[2023-01-21 09:53] LABS: ARTERIAL BLOOD GAS PH 7.306 (7.35-7.45); ARTERIAL BLOOD GAS PO2 133.9 (80-90)
[2023-01-21 09:54] LABS: ABG BASE EXCESS -10.5 mmol/L (-2.0-2.0)
[2023-01-21] MEDS ORDERED: HYDROCODONE-AC1 EAC2 PO ×2 (11:47→15:30)
[2023-01-21] MEDS ORDERED: DITROPAN XL10 MG PO ×2 (11:49→15:31)
[2023-01-21] MEDS ORDERED: LOPERAMIDE HCL2 MG PO (11:50)
[2023-01-21] MEDS ORDERED: OMEPRAZOLE40 MG PO (11:52)
[2023-01-21] MEDS ORDERED: METFORMIN XR500 MG PO (11:54)
[2023-01-21] MEDS ORDERED: MELATONIN10 M4 PO (11:56)
[2023-01-21 12:01] LABS: URINE AMPHETAMINES Negative (1000ng/ml); URINE BARBITURATES Negative (200ng/ml); URINE BENZODIAZEPINES Positive (200ng/ml); URINE CANNABINOIDS (THC) Negative (50ng/ml); URINE COCAINE Negative (300ng/ml); URINE METHADONE Negative (300ng/ml); URINE OPIATES Positive (300ng/ml); URINE PHENCYCLIDINE Negative (25ng/ml)
[2023-01-21] MEDS ORDERED: TYLENOL W/ CODEINE PO (15:27)
[2023-01-21] MEDS ORDERED: PRAVASTATIN SOD40 MG PO (15:32)
[2023-01-21] MEDS ORDERED: METFORMIN HCL500 M3 PO (15:33)
[2023-01-21 15:58] LABS: ABG BASE EXCESS -7.3 mmol/L (-2.0-2.0); ARTERIAL BLOOD GAS PH 7.272 (7.35-7.45); ARTERIAL BLOOD GAS PO2 102.3 (80-90)
[2023-01-21 20:27] LABS: HEMATOCRIT 24.4 % (37.0-47.0); MANUAL DIFF REFLEX YES; MEAN CELL VOLUME 105.6 fl (81.0-99.0); MEAN CORPUSCULAR HGB 31.6 pg (27.0-31.0); MEAN CORPUSCULAR HGB CONC 29.9 g/dl (33.0-37.0); MEAN PLATELET VOLUME 11.4 fl (9.6-12.3); NUCLEATED RED BLOOD CELL 0.2 10*3/uL (0.0-0.0); NUCLEATED RED BLOOD CELL 1.2 % (0.0-0.0); PLATELET COUNT AUTOMATED 172 10*3/uL (130-400); RED BLOOD COUNT 2.31 10*6/uL (4.10-5.10); RED CELL DISTRI WIDTH 18.8 % (0-14.5); WHITE BLOOD COUNT 13.6 10*3/uL (4.8-10.8)
[2023-01-21 20:47] LABS: PLATELET SUFFICIENCY NORMAL (NORMAL); POLYCHROMASIA SLIGHT; TOTAL CELLS COUNTED 100 #CELLS
[2023-01-21 20:53] LABS: POTASSIUM 3.7 mmol/L (3.4-5.1); TOTAL PROTEIN 8.5 gm/dL (6.0-8.0)
[2023-01-21 21:06] LABS: INTERNATIONAL NORM RATIO 1.7 (2.0-3.5)
[2023-01-21 21:07] LABS: ACT PARTIAL THROMBO TIME 98.6 SECONDS (20.0-32.1)
[2023-01-22] VITALS (96 sets, daily range): BP systolic 82–127; BP diastolic 36–62
[2023-01-22 05:01] LABS: FREE T4 1.02 ng/dl (0.89-1.76); POTASSIUM 3.9 mmol/L (3.4-5.1); THYROID STIM HORMONE (HS) 0.536 uIU/ml (0.550-4.780); TOTAL PROTEIN 8.2 gm/dL (6.0-8.0)
[2023-01-22 06:29] LABS: ACT PARTIAL THROMBO TIME 67.9 SECONDS (20.0-32.1); INTERNATIONAL NORM RATIO 1.5 (2.0-3.5)
[2023-01-22 07:01] LABS: HEMATOCRIT 23.3 % (37.0-47.0); MEAN CELL VOLUME 103.1 fl (81.0-99.0); MEAN CORPUSCULAR HGB 31.9 pg (27.0-31.0); MEAN CORPUSCULAR HGB CONC 30.9 g/dl (33.0-37.0); MEAN PLATELET VOLUME 11.6 fl (9.6-12.3); NUCLEATED RED BLOOD CELL 0.1 10*3/uL (0.0-0.0); NUCLEATED RED BLOOD CELL 0.9 % (0.0-0.0); PLATELET COUNT AUTOMATED 168 10*3/uL (130-400); RED BLOOD COUNT 2.26 10*6/uL (4.10-5.10); RED CELL DISTRI WIDTH 18.8 % (0-14.5); WHITE BLOOD COUNT 12.9 10*3/uL (4.8-10.8)
[2023-01-22 07:04] LABS: MANUAL DIFF REFLEX YES
[2023-01-22 07:22] LABS: BURR CELLS FEW; PLATELET SUFFICIENCY NORMAL (NORMAL); POLYCHROMASIA SLIGHT; ROULEAUX SLIGHT; SCHISTOCYTES FEW; TOTAL CELLS COUNTED 100 #CELLS; TOXIC GRANULATION SLIGHT; VACUOLATION OF NEUTROPHILS SLIGHT
[2023-01-22 07:23] LABS: DOHLE BODIES FEW
[2023-01-22 07:51] LABS: ARTERIAL BLOOD GAS PH 7.305 (7.35-7.45); ARTERIAL BLOOD GAS PO2 126.1 (80-90)
[2023-01-22 07:52] LABS: ABG BASE EXCESS -9.5 mmol/L (-2.0-2.0)
[2023-01-22 15:51] LABS: HEMATOCRIT 22.4 % (37.0-47.0); MEAN CELL VOLUME 102.8 fl (81.0-99.0); MEAN CORPUSCULAR HGB CONC 32.1 g/dl (33.0-37.0); MEAN PLATELET VOLUME 12.7 fl (9.6-12.3); NUCLEATED RED BLOOD CELL 0.1 10*3/uL (0.0-0.0); NUCLEATED RED BLOOD CELL 1.1 % (0.0-0.0); PLATELET COUNT AUTOMATED 147 10*3/uL (130-400); RED BLOOD COUNT 2.18 10*6/uL (4.10-5.10); RED CELL DISTRI WIDTH 18.9 % (0-14.5); WHITE BLOOD COUNT 11.3 10*3/uL (4.8-10.8)
[2023-01-22 15:54] LABS: MANUAL DIFF REFLEX YES
[2023-01-22 15:56] LABS: ABG BASE EXCESS -8.4 mmol/L (-2.0-2.0); ARTERIAL BLOOD GAS PH 7.223 (7.35-7.45); ARTERIAL BLOOD GAS PO2 126.1 (80-90)
[2023-01-22 16:38] LABS: POTASSIUM 4.4 mmol/L (3.4-5.1)
[2023-01-22 17:08] LABS: BURR CELLS FEW; PLATELET SUFFICIENCY NORMAL (NORMAL); POLYCHROMASIA SLIGHT; TOTAL CELLS COUNTED 100 #CELLS
[2023-01-22 17:09] LABS: ACANTHOCYTES FEW; SPHEROCYTES FEW; TOXIC GRANULATION SLIGHT
[2023-01-23] VITALS (96 sets, daily range): BP systolic 88–126; BP diastolic 43–72
[2023-01-23 05:06] LABS: POTASSIUM 4.3 mmol/L (3.4-5.1)
[2023-01-23 06:13] LABS: HEMATOCRIT 22.9 % (37.0-47.0); MEAN CELL VOLUME 103.6 fl (81.0-99.0); MEAN CORPUSCULAR HGB 31.7 pg (27.0-31.0); MEAN CORPUSCULAR HGB CONC 30.6 g/dl (33.0-37.0); MEAN PLATELET VOLUME 12.1 fl (9.6-12.3); NUCLEATED RED BLOOD CELL 0.1 10*3/uL (0.0-0.0); NUCLEATED RED BLOOD CELL 0.5 % (0.0-0.0); PLATELET COUNT AUTOMATED 139 10*3/uL (130-400); RED BLOOD COUNT 2.21 10*6/uL (4.10-5.10); RED CELL DISTRI WIDTH 19.2 % (0-14.5)
[2023-01-23 06:17] LABS: MANUAL DIFF REFLEX YES
[2023-01-23 06:46] LABS: ATYPICAL LYMPHS 1 % (0-0); TOTAL CELLS COUNTED 100 #CELLS
[2023-01-23 06:47] LABS: BURR CELLS MODERATE; PLATELET SUFFICIENCY NORMAL (NORMAL); POLYCHROMASIA SLIGHT; ROULEAUX SLIGHT; SCHISTOCYTES FEW; TOXIC GRANULATION SLIGHT; VACUOLATION OF NEUTROPHILS SLIGHT
[2023-01-23 08:35] LABS: ARTERIAL BLOOD GAS PH 7.284 (7.35-7.45); ARTERIAL BLOOD GAS PO2 160.9 (80-90)
[2023-01-23 08:36] LABS: ABG BASE EXCESS -8.8 mmol/L (-2.0-2.0)
[2023-01-23 12:28] LABS: ABG BASE EXCESS -9.2 mmol/L (-2.0-2.0); ARTERIAL BLOOD GAS PH 7.302 (7.35-7.45); ARTERIAL BLOOD GAS PO2 160.3 (80-90)
[2023-01-24] VITALS (82 sets, daily range): BP systolic 88–133; BP diastolic 34–75
[2023-01-24 04:22] LABS: HEMATOCRIT 23.2 % (37.0-47.0); MEAN CELL VOLUME 102.7 fl (81.0-99.0); MEAN CORPUSCULAR HGB 31.9 pg (27.0-31.0); MEAN PLATELET VOLUME 12.6 fl (9.6-12.3); NUCLEATED RED BLOOD CELL 0.1 10*3/uL (0.0-0.0); NUCLEATED RED BLOOD CELL 1.7 % (0.0-0.0); PLATELET COUNT AUTOMATED 116 10*3/uL (130-400); RED BLOOD COUNT 2.26 10*6/uL (4.10-5.10); RED CELL DISTRI WIDTH 19.5 % (0-14.5); WHITE BLOOD COUNT 6.6 10*3/uL (4.8-10.8)
[2023-01-24 04:26] LABS: MANUAL DIFF REFLEX YES
[2023-01-24 04:37] LABS: ALKALINE PHOSPHATASE 72 U/L (46-116); BUN 58 mg/dl (9-23); CHLORIDE 95 mmol/L (98-107); CHOLESTEROL 72 mg/dL (<200); LDL CHOLESTEROL 22 mg/dL (9-159); POTASSIUM 4.7 mmol/L (3.4-5.1); SGPT/ALT 47 U/L (10-49); TOTAL PROTEIN 7.7 gm/dL (6.0-8.0); TRIGLYCERIDES 226 mg/dl (<150)
[2023-01-24 04:58] LABS: PLATELET SUFFICIENCY LOW (NORMAL); TOTAL CELLS COUNTED 100 #CELLS
[2023-01-24 07:30] LABS: ABG BASE EXCESS -10.3 mmol/L (-2.0-2.0); ARTERIAL BLOOD GAS PH 7.3 (7.35-7.45); ARTERIAL BLOOD GAS PO2 135.4 (80-90)
== END 2023-01-24 21:10 | disposition short-term general hospital (02) | DRG 871 ==
LOC: ED 03:28 → ICCU 08:22 → EDHOLD 08:22 → ICCU 14:14
PROVIDERS: Emergency Medicine; Internal Medicine; Internal Medicine Cardiovascular Disease; ADMIT Internal Medicine; ATTEND Internal Medicine
PROC: 30233N1 Transfusion of Nonautologous Red Blood Cells into Peripheral Vein, Percutaneous Approach (ICD-10-PCS; principal; 2023-01-21)
PROC: 5A1945Z Respiratory Ventilation, 24-96 Consecutive Hours (ICD-10-PCS; 2023-01-21)
PROC: 0BH17EZ Insertion of Endotracheal Airway into Trachea, Via Natural or Artificial Opening (ICD-10-PCS; 2023-01-21)
DX: A41.9 Sepsis, unspecified organism (principal); E43 Unspecified severe protein-calorie malnutrition; G93.41 Metabolic encephalopathy; J96.01 Acute respiratory failure with hypoxia; I21.4 Non-ST elevation (NSTEMI) myocardial infarction; J69.0 Pneumonitis due to inhalation of food and vomit; R65.21 Severe sepsis with septic shock; E87.1 Hypo-osmolality and hyponatremia; E87.20 Acidosis, unspecified; I47.1 Supraventricular tachycardia; D68.2 Hereditary deficiency of other clotting factors; F41.9 Anxiety disorder, unspecified; F31.9 Bipolar disorder, unspecified; E11.65 Type 2 diabetes mellitus with hyperglycemia; K21.9 Gastro-esophageal reflux disease without esophagitis; E66.9 Obesity, unspecified; I48.91 Unspecified atrial fibrillation; E87.8 Other disorders of electrolyte and fluid balance, not elsewhere classified; D53.9 Nutritional anemia, unspecified; E83.42 Hypomagnesemia; Z20.822 Contact with and (suspected) exposure to COVID-19; I35.8 Other nonrheumatic aortic valve disorders; Z88.8 Allergy status to other drugs, medicaments and biological substances; Z91.041 Radiographic dye allergy status; Z79.4 Long term (current) use of insulin; Z90.49 Acquired absence of other specified parts of digestive tract; Z90.710 Acquired absence of both cervix and uterus; Z98.42 Cataract extraction status, left eye; Z98.41 Cataract extraction status, right eye; Z98.891 History of uterine scar from previous surgery; Z80.1 Family history of malignant neoplasm of trachea, bronchus and lung; Z82.3 Family history of stroke; Z68.30 Body mass index [BMI] 30.0-30.9, adult